=== PATIENT | male | born 1975 | race Two or more races ===

== ENCOUNTER 2017-06-18 13:16 | Inpatient (IN) | payer SELFPAY ==
[~2017-06-18] VITALS: Ht 165.1 cm; Wt 84.0 kg
[2017-06-18] VITALS (19 sets, daily range): BP systolic 126–149; BP diastolic 94–99
[2017-06-18] MEDS ORDERED: ASPirin 81 mg TAB PO ONE (13:30)
[2017-06-18] MEDS ORDERED: MORPHINE SULFATE 4 MG/ML SYR/VIAL IV ONE (13:30)
[2017-06-18] MEDS ORDERED: ONDANSETRON HCL 4 MG/2 ML VIAL IV ONE (13:30)
[2017-06-18] MEDS ORDERED: IOHEXOL 350 MG/ML 100ML IJ ONE ×2 (13:35→14:27)
[2017-06-18] MEDS ORDERED: LIDOCAINE 2%HCL (LOCAL ANESTH.) INJ 20ML MDV ONE ×2 (13:35→15:34)
[2017-06-18] MEDS ORDERED: HEPARIN IN NS 1000U/500ML (2UNIT/ML) 500 ML BAG/KIT IV ONE (13:45)
[2017-06-18] MEDS ORDERED: ANGIOMAX 250 MG VIAL IV ONE ×2 (13:51→15:32)
[2017-06-18] MEDS ORDERED: SODIUM CHL 0.9% 50 ML ONE ×2 (13:52→15:32)
[2017-06-18] MEDS ORDERED: MIDAZOLAM HCL 1MG/1ML-2 ML VIAL ONE ×2 (13:52→15:50)
[2017-06-18] MEDS ORDERED: fentaNYL CITRATE 100 MCG/2 ML VL ONE ×2 (13:52→15:50)
[2017-06-18] MEDS ORDERED: ATROPINE SULF 0.5 MG/5ML SYR ONE ×2 (13:53→15:31)
[2017-06-18] MEDS ORDERED: EPINEPHrine HCL 1 MG/10 ML SYRG ONE ×2 (13:53→15:31)
[2017-06-18] MEDS ORDERED: EPTIFIBATIDE INJ (2MG/ML) 10ML VIAL IV ONE ×2 (14:09→15:31)
[2017-06-18 14:17] LABS: Basophils # (auto) 0.1 uL; Basophils % (auto) 0.7 % (0.0-2.0); Eosinophils # (auto) 0.4 uL; Hematocrit 47.6 % (41.0-53.0); Lymphocytes # (auto) 3.1 uL; Lymphocytes % (auto) 33.9 % (10.0-50.0); Mean Corpuscular Hgb Conc. 33.7 g/dL (32.0-36.0); Monocytes # (auto) 0.7 uL; Monocytes % (auto) 7.8 % (0.0-12.0); Neutrophils # (auto) 4.9 uL; Neutrophils % (auto) 53.6 % (37.0-80.0); Nucleated Red Blood Cells % 0.2 %; Platelet Count (auto) 308 10^3/uL (140-450); Red Blood Cells 5.01 10^6/uL (4.5-5.90); Red Cell Distribution Width 12.8 % (11.8-14.3); White Blood Cell 9.1 10^3/uL (4.4-10.8)
[2017-06-18] MEDS ORDERED: PRASUGREL HCL 10 MG TAB ONE (14:22)
[2017-06-18 14:31] LABS: INR 0.95 (0.9-1.15); Partial Thromboplastin Time 22.4 sec (22.64-33.71); Prothrombin Time 10.3 sec (9.37-12.3)
[2017-06-18 14:34] LABS: Albumin 4.1 g/dL (3.4-5.0); Bilirubin, Total 0.3 mg/dL (0.2-1.0); Calcium 8.6 mg/dL (8.5-10.1); Magnesium 2.6 mg/dL (1.6-2.6); Potassium 3.7 mmol/L (3.5-5.1); Total Protein 7.7 g/dL (6.4-8.2)
[2017-06-18] MEDS ORDERED: CLOPIDOGREL 300 MG TAB ONE (14:47)
[2017-06-18] MEDS ORDERED: ACETAMINOPHEN 500 MG TAB PO PRN (15:15)
[2017-06-18] MEDS ORDERED: MORPHINE SULFATE 4 MG/ML SYR/VIAL IV PRN (15:15)
[2017-06-18] MEDS ORDERED: NITROGLYCERIN 0.4 MG SL TAB SL PRN (15:15)
[2017-06-18] MEDS ORDERED: HYDROcodone-ACET 5/325MG TAB PO PRN (15:15)
[2017-06-18] MEDS ORDERED: IODIXANOL 320MG/ML 100ML BTL IV ONE (15:36)
[2017-06-18] MEDS ORDERED: VERAPAMIL 2.5MG/ML INJ 2ML VIAL IV ONE (15:38)
[2017-06-18] MEDS ORDERED: EPTIFIBATIDE DRIP(0.75MG/ML) 100 ML IV ONE (16:27)
[2017-06-18] MEDS: CARVEDILOL 3.125 MG TAB PO SCH (22:13)
[2017-06-18] MEDS: ATORVASTATIN 20 MG TAB PO SCH (22:13)
[2017-06-18] MEDS: SODIUM CHLOR 0.9% PF (SALINE LOCK) 10ML VIAL IV SCH (22:13)
[2017-06-19] VITALS (28 sets, daily range): BP systolic 117–149; BP diastolic 64–99
[2017-06-19 03:50] LABS: Basophils # (auto) 0 uL; Basophils % (auto) 0.1 % (0.0-2.0); Eosinophils # (auto) 0 uL; Eosinophils % (auto) 0.1 % (0.0-7.0); Hematocrit 46.6 % (41.0-53.0); Hemoglobin 15.7 g/dL (13.5-17.5); Lymphocytes # (auto) 1.5 uL; Lymphocytes % (auto) 13.6 % (10.0-50.0); Mean Corpuscular Hemoglobin 32.2 pg (28.0-32.0); Mean Corpuscular Hgb Conc. 33.7 g/dL (32.0-36.0); Mean Corpuscular Volume 95.4 fL (80.0-100.0); Monocytes # (auto) 0.8 uL; Monocytes % (auto) 7.3 % (0.0-12.0); Neutrophils # (auto) 8.6 uL; Neutrophils % (auto) 78.9 % (37.0-80.0); Platelet Count (auto) 294 10^3/uL (140-450); Red Blood Cells 4.89 10^6/uL (4.5-5.90); White Blood Cell 10.9 10^3/uL (4.4-10.8)
[2017-06-19 04:03] LABS: Potassium 3.8 mmol/L (3.5-5.1)
[2017-06-19 04:06] LABS: BUN/Creatinine Ratio 16.5; Calcium 8.7 mg/dL (8.5-10.1)
[2017-06-19] MEDS: SODIUM CHLOR 0.9% PF (SALINE LOCK) 10ML VIAL IV SCH ×3 (07:49→22:00)
[2017-06-19] MEDS: ASPirin 81 mg TAB PO SCH (10:39)
[2017-06-19] MEDS: CLOPIDOGREL BISULFATE 75 MG TAB PO SCH (10:39)
[2017-06-19] MEDS: CARVEDILOL 3.125 MG TAB PO SCH ×2 (10:41→22:44)
[2017-06-19] MEDS: LISINOPRIL 5 MG TAB PO SCH (10:46)
[2017-06-19] MEDS ORDERED: ALBUTEROL SULF 2 MG/5ML ORAL SYRUP PO SCH (12:00)
[2017-06-19] MEDS: IPRATROPIUM BROM 0.5 MG/2.5ML INH SOL NEB SCH ×2 (14:10→18:55)
[2017-06-19] MEDS: ATORVASTATIN 20 MG TAB PO SCH (22:44)
[2017-06-20 04:20] VITALS: BP 111/77
[2017-06-20 05:00] VITALS: BP 102/71
[2017-06-20] MEDS: SODIUM CHLOR 0.9% PF (SALINE LOCK) 10ML VIAL IV SCH ×2 (05:39→15:13)
[2017-06-20] MEDS: IPRATROPIUM BROM 0.5 MG/2.5ML INH SOL NEB SCH ×4 (06:38→19:00)
[2017-06-20 09:00] VITALS: BP 126/68
[2017-06-20] MEDS: ASPirin 81 mg TAB PO SCH (09:21)
[2017-06-20] MEDS: CLOPIDOGREL BISULFATE 75 MG TAB PO SCH (09:21)
[2017-06-20] MEDS: CARVEDILOL 3.125 MG TAB PO SCH (09:22)
[2017-06-20] MEDS: LISINOPRIL 5 MG TAB PO SCH (09:22)
[2017-06-20 13:00] VITALS: BP 120/57
[2017-06-20] MEDS ORDERED: ATO40T PO (14:15)
[2017-06-20] MEDS ORDERED: ASPI-231 PO (14:15)
[2017-06-20] MEDS ORDERED: CLOP75TA41 PO (14:16)
[2017-06-20] MEDS ORDERED: CARV3.1240 PO (14:16)
[2017-06-20] MEDS ORDERED: LISI-275 PO (14:17)
[2017-06-20 17:00] VITALS: BP 122/69
[2017-06-20 17:02] VITALS: BP 120/57
== END 2017-06-20 19:21 | disposition home or self-care (01) | DRG 246 ==
LOC: ER 13:16 → CATH 13:17 → TELE-EAST 13:18 → ICU WEST 17:47 → TELE-WESTW 06-19 20:55
PROVIDERS: ADMIT Internal Medicine; ATTEND Internal Medicine
PROC: 027237Z Dilation of Coronary Artery, Three Arteries with Four or More Drug-eluting Intraluminal Devices, Percutaneous Approach (ICD-10-PCS; principal; 2017-06-18)
PROC: 02C03ZZ Extirpation of Matter from Coronary Artery, One Artery, Percutaneous Approach (ICD-10-PCS; 2017-06-18)
PROC: 3E073PZ Introduction of Platelet Inhibitor into Coronary Artery, Percutaneous Approach (ICD-10-PCS; 2017-06-18)
PROC: 4A023N7 Measurement of Cardiac Sampling and Pressure, Left Heart, Percutaneous Approach (ICD-10-PCS; 2017-06-18)
PROC: B2111ZZ Fluoroscopy of Multiple Coronary Arteries using Low Osmolar Contrast (ICD-10-PCS; 2017-06-18)
PROC: B2151ZZ Fluoroscopy of Left Heart using Low Osmolar Contrast (ICD-10-PCS; 2017-06-18)
PROC: 02703ZZ Dilation of Coronary Artery, One Artery, Percutaneous Approach (ICD-10-PCS; 2017-06-18)
PROC: 3E07317 Introduction of Other Thrombolytic into Coronary Artery, Percutaneous Approach (ICD-10-PCS; 2017-06-18)
PROC: 4A023N7 Measurement of Cardiac Sampling and Pressure, Left Heart, Percutaneous Approach (ICD-10-PCS; 2017-06-18)
PROC: B2111ZZ Fluoroscopy of Multiple Coronary Arteries using Low Osmolar Contrast (ICD-10-PCS; 2017-06-18)
PROC: 02C03ZZ Extirpation of Matter from Coronary Artery, One Artery, Percutaneous Approach (ICD-10-PCS; 2017-06-18)
DX: T82.867A Thrombosis due to cardiac prosthetic devices, implants and grafts, initial encounter (principal); I21.19 ST elevation (STEMI) myocardial infarction involving other coronary artery of inferior wall; E78.00 Pure hypercholesterolemia, unspecified; E78.5 Hyperlipidemia, unspecified; I10 Essential (primary) hypertension; J45.909 Unspecified asthma, uncomplicated; Z82.49 Family history of ischemic heart disease and other diseases of the circulatory system; Y83.8 Other surgical procedures as the cause of abnormal reaction of the patient, or of later complication, without mention of misadventure at the time of the procedure; Y92.89 Other specified places as the place of occurrence of the external cause
CPT/HCPCS: 36415; 71045; 80048; 80053; 83735; 84484; 85025; 85610; 85730; 87081; 92920; 92928; 92973; 92975; 93005; 93458; 94640; 99152; 99153; C1874; C1887; J0461; J2250; Q9967

== ENCOUNTER 2024-09-22 08:17 | Outpatient (CLI) | payer MEDICAID ==
[~2024-09-22] VITALS: Ht 165.1 cm; Wt 76.2 kg
[~2024-09-22 08:17] MED LIST: ASPI1TAB20 PO; ATOR-507 PO; CARV3.1240 PO; CLOP75TA70 PO; LISI-275 PO
[2024-09-22] MEDS: REGADENOSON 0.4 MG/5 ML SYRG IV ONE ×2 (10:24)
--- NOTE | 2024-09-22 13:47 | DVHSR ---
APPROVED REPORT Exam: Nuclear Stress Test BMI: 0 Stress Test Details HR Max Heart Rate (APMHR): 171.588236 bpm Target HR (85% APMHR): 145.610749 bpm BP ECG Stress ECG Conclusion lvef 58% inferior wall fixed defect no stress induced ischemia noted NM EXAM: Myocardial Perfusion REST/STRESS Imaging Protocol: Rest Tc-99m/Stress Tc-99m 1 day Resting Data Rest SPECT myocardial perfusion imaging was performed in supine position 60 minutes following the int ravenous injection of 11.3 mCi of Tc-99m Sestamibi. Time of rest injection: 0900 Time of rest imagin Administration Route: IV Administration Site: Left Wrist Pharmacologic Stress Pharmacologic stress test was performed by injecting Regadenoson 0.4 mg IV push followed by the intra venous injection of 31.2 mCi of Tc-99m Sestamibi. Time of stress injection: 1030 Time of stress imagin Administration Route: IV Administration Site: Left Wrist Gated Stress SPECT was performed 45 minutes after stress injection. The images were gated to evaluate regional wall motion and calculate left ventricular ejection fracti on. Nuclear Conclusion Nuclear Findings: negative for ischemia lvef 58% inferior wall fixed defect no stress induced ischemia noted
== END 2024-09-22 17:00 | disposition home or self-care (01) ==
LOC: XYW 08:17
PROVIDERS: ATTEND Internal Medicine
DX: Z01.810 Encounter for preprocedural cardiovascular examination (principal); R07.9 Chest pain, unspecified
CPT/HCPCS: 78452; 93017; A9500; J2785

== ENCOUNTER 2025-03-13 07:21 | Outpatient (CLI) | payer MEDICAID ==
[2025-03-13 07:57] LABS: Hematocrit 46.4 % (41.0-53.0); Hemoglobin 15.5 g/dL (13.5-17.5); Mean Corpuscular Hemoglobin 32.0 pg (28.0-32.0); Mean Corpuscular Volume 95.7 fL (80.0-100.0); Nucleated Red Blood Cells % 0.1 %
[2025-03-13 08:25] LABS: Alanine Aminotransferase 18 U/L (7-40); Albumin 4.0 g/dL (3.2-4.8); Alkaline Phosphatase 72 U/L (46-116); Anion Gap 9 (5-15); BUN/Creatinine Ratio 17.9 (10.0-20.0); Blood Urea Nitrogen 17 mg/dL (9-23); Carbon Dioxide 27 mmol/L (20-31); Chloride 104 mmol/L (98-107); Cholesterol 170 mg/dL (< 200); Glucose 94 mg/dL (74-106); HDL Cholesterol 53 mg/dL (40-59); Potassium 4.4 mmol/L (3.5-5.1); Sodium 140 mmol/L (136-145); Total Protein 6.8 g/dL (5.7-8.2); Triglycerides 88 mg/dL (< 150)
[2025-03-13 08:26] LABS: Bilirubin, Total 0.3 mg/dL (0.2-1.0)
[2025-03-13 08:35] LABS: Calcium 8.7 mg/dL (8.7-10.4)
[2025-03-13 11:01] LABS: Free T3 4.02 pg/mL (2.3-4.2)
[2025-03-13 11:02] LABS: Free T4 (Free Thyroxine) 1.15 ng/dL (0.89-1.76)
== END 2025-03-13 17:00 | disposition home or self-care (01) ==
LOC: LAB 07:21
PROVIDERS: ATTEND Internal Medicine
DX: I25.119 Atherosclerotic heart disease of native coronary artery with unspecified angina pectoris (principal); I10 Essential (primary) hypertension; E78.5 Hyperlipidemia, unspecified; R73.03 Prediabetes
CPT/HCPCS: 36415; 80053; 80061; 83036; 84439; 84443; 84481; 85025